=== PATIENT | male | born 1970 | race Caucasian/White ===

== ENCOUNTER 2021-09-27 05:14 | Emergency (ER) | payer OTHER ==
[~2021-09-27] VITALS: Ht 180.3 cm; Wt 104.3 kg
[~2021-09-27 05:14] MED LIST: HYDROCERIN CRE454 GM
[2021-09-27] MEDS ORDERED: LOREEV XR2 MG PO (05:32)
[2021-09-27] MEDS ORDERED: ADDERALL 20 MG20 MG PO (05:32)
[2021-09-27] MEDS ORDERED: LOSARTAN POTASS50 MG PO (05:32)
[2021-09-27] MEDS ORDERED: ANUSOL-HC30 G2 TOP (06:39)
[2021-09-27] MEDS ORDERED: CEPHALEXIN500 MG PO (06:39)
== END 2021-09-27 06:44 ==
LOC: ER 05:14
DX: K64.4 Residual hemorrhoidal skin tags (principal); I10 Essential (primary) hypertension